=== PATIENT | male | born 1970 | race Caucasian/White ===

== ENCOUNTER → 2021-03-19 | Outpatient (CLI) | payer OTHER ==
[~2021-03-19] MED LIST: ANTIVERT25 MG PO; CELEXA 20 MG TA20 MG PO; FLEXERIL PO; HYDROCODON-ACE1 EAC7 PO; HYDROCODON-ACE1 EAC8 PO; HYDROCODONE-AP1 EAC6 PO; IBUPROFEN 800800 M1 PO; IBUPROFEN 800800 MG PO; MEDROLDOSEPACK; MEDROLDOSEPACK PO; NAPROSYN500 MG PO; NOHOMEMEDICATIONS; NORCO 5-325 TA1 EACH PO; NORFLEX100 MG PO; PERCOCET 10-321 EACH PO; PERCOCET 5-3251 EACH PO; PREDNISONE 10 M10 MG PO; ROBAXIN 750 MG750 MG PO; ROBAXIN500 MG PO; SKELAXIN 800 M800 M1 PO; TRAMADOL 50 MG50 MG PO; ZOFRAN ODT4 MG PO
== END ==
LOC: M.CT 10:31
PROVIDERS: ATTEND Nurse Practitioner Family
DX: Z13.6 Encounter for screening for cardiovascular disorders (principal); I25.10 Atherosclerotic heart disease of native coronary artery without angina pectoris